=== PATIENT | female | born 1955 | race American Indian/Alaskan Native ===

== ENCOUNTER 2017-10-05 05:48 | Day surgery (SDC) | payer OTHER ==
[2017-10-05 07:29] LABS: Basophils % (Auto) 0.3 % (0.0-1.8); Eosinophils # (Auto) 0.1 K/mm3 (0.0-0.4); Eosinophils % (Auto) 0.5 % (0.0-4.3); Hematocrit 33.6 % (30.3-42.9); Hemoglobin 10.4 gm/dl (10.1-14.3); Lymphocytes # (Auto) 3.4 K/mm3 (1.2-5.4); Lymphocytes % (Auto) 34.6 % (13.4-35.0); Mean Corpuscular HGB Conc 31 % (30-34); Mean Corpuscular Volume 74 fl (79-97); Monocytes # (Auto) 1.1 K/mm3 (0.0-0.8); Monocytes % (Auto) 11.8 % (0.0-7.3); Platelet Count 118 K/mm3 (140-440); Red Blood Count 4.56 M/mm3 (3.65-5.03); Red Cell Distribution Width 17.2 % (13.2-15.2)
[2017-10-05 07:30] LABS: Mean Corpuscular Hemoglobin 23 pg (28-32)
[2017-10-05 07:40] LABS: INR 0.87 (0.87-1.13); Partial Thromboplastin Time 20.1 Sec. (24.2-36.6)
[2017-10-05] MEDS ORDERED: SUBLIMAZE ONE (08:40)
[2017-10-05] MEDS ORDERED: VERSED IV ONE ×2 (08:40→08:43)
[2017-10-05] MEDS ORDERED: SUBLIMAZE IV ONE (08:43)
[2017-10-05 10:49] VITALS: BP 113/62
--- NOTE | 2017-10-05 10:58 | Cat Scan Report ---
CT BIOPSY BONE MARROW: HISTORY: Thrombocytopenia. DESCRIPTION OF PROCEDURE: Informed consent was obtained. Sterile technique was utilized. Conscious sedation was accomplished with Versed and fentanyl. The patient was sedated for 15 minutes. Independent cardiorespiratory monitoring by RN. Intra-observer time of [address] guidance, an introducer needle was advanced into the right posterior iliac bone. 4 aspirations and one 11-gauge bone core was obtained. Pathology was present to handle the sample. The patient tolerated the procedure without difficulty. IMPRESSION: Successful CT-guided bone marrow biopsy.
[2017-10-05 11:35] LABS: Band Neutrophils # (Manual) 0.1 K/mm3; Basophils % (Manual) 0 % (0.0-1.8); Eosinophils % (Manual) 0 % (0.0-4.3); Total Cells Counted 100
[2017-10-05 11:39] LABS: Anisocytosis 1+
[2017-10-05 11:40] LABS: Acanthocytes 1+; Burr Cells Few; Macrocytosis 1+; Ovalocytes 1+; Platelet Estimate Appears Decreased; Schistocytes Few; Target Cells Few
== END 2017-10-05 11:10 | disposition home or self-care (01) ==
LOC: CATHLABREC 05:48 → EDSTATUS 07:30 → CATHLABREC 11:10
PROVIDERS: ATTEND Internal Medicine Hematology
DX: D69.6 Thrombocytopenia, unspecified (principal)
CPT/HCPCS: 36415; 38220; 38221; 85007; 85025; 85097; 85610; 85730; 88184; 88185; 88230; 88291; 88305; J2250; J3010; 88161; 88311; 88313

== ENCOUNTER 2018-01-28 09:11 | Outpatient (CLI) | payer OTHER ==
--- NOTE | 2018-01-28 14:17 | Ultrasound Report ---
ULTRASOUND ABDOMEN LIMITED History: Other primary thrombocytopenia. Findings: Targeted ultrasound was performed in the left upper quadrant to evaluate for an accessory spleen. 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 The images demonstrate no evidence for splenule or accessory spleen. Impression: No accessory spleen is identified in the left upper quadrant.
--- NOTE | 2018-01-29 08:55 | Ultrasound Report ---
FINAL REPORT EXAM: US PELVIC LIMITED HISTORY: ASSESS URINARY BLADDER FOR INCONTINENCE TECHNIQUE: Sagittal and transverse images were obtained of the bladder. FINDINGS: The bladder wall thickness is normal. There are no intraluminal abnormalities are stones. IMPRESSION: Normal-appearing bladder.
== END 2018-01-28 09:12 | disposition home or self-care (01) ==
LOC: US 09:11
PROVIDERS: ATTEND Internal Medicine Hematology
DX: D69.49 Other primary thrombocytopenia (principal); D69.3 Immune thrombocytopenic purpura; M19.90 Unspecified osteoarthritis, unspecified site; F41.9 Anxiety disorder, unspecified; Z82.49 Family history of ischemic heart disease and other diseases of the circulatory system; Z90.710 Acquired absence of both cervix and uterus
CPT/HCPCS: 76705; 76857

== ENCOUNTER 2022-04-09 07:02 | Outpatient (CLI) | payer MEDICARE ==
[2022-04-09 08:47] LABS: INR 0.89 (0.87-1.13); Partial Thromboplastin Time 22.7 Sec. (24.2-36.6)
[2022-04-09 09:05] LABS: Basophils % (Auto) 0.4 % (0.0-1.8); Eosinophils # (Auto) 0.1 K/mm3 (0.0-0.4); Eosinophils % (Auto) 1.2 % (0.0-4.3); Hematocrit 34.1 % (30.3-42.9); Hemoglobin 10.5 gm/dl (10.1-14.3); Lymphocytes % (Auto) 46.4 % (13.4-35.0); Mean Corpuscular HGB Conc 31 % (30-34); Mean Corpuscular Volume 73 fl (79-97); Mean Platelet Volume 10.1 fl (6-12); Monocytes % (Auto) 11.3 % (0.0-7.3); Platelet Count 220 K/mm3 (140-440); Red Blood Count 4.67 M/mm3 (3.65-5.03); Red Cell Distribution Width 15.9 % (13.2-15.2)
[2022-04-09] MEDS ORDERED: ONDANSETRON 4 MG/2 ML INJ IV ONE ×2 (12:00→16:00)
[2022-04-09] MEDS ORDERED: HYDROmorphone 1 MG/1 ML INJ IV ONE (12:00)
[2022-04-09] MEDS ORDERED: LIDOCAINE (1%) 10 MG/1 ML VIAL 20 ML MDV ONE (13:03)
--- NOTE | 2022-04-09 14:37 | Procedure Note ---
Date of procedure: 04/09/22 Pre-op diagnosis: ITP Post-op diagnosis: same Procedure: CT guided BM aspirate and biopsy Findings: See report in PACS Anesthesia: local Surgeon: EDGARD CAI Estimated blood loss: none Pathology: none Specimen disposition: to lab Condition: stable Disposition: other
--- NOTE | 2022-04-09 14:46 | Cat Scan Report ---
CT-guided bone marrow aspiration and biopsy INDICATION : Abnormal labs, ITP COMPARISON: None PROCEDURE: The risks (including but not limited to bleeding and infection) and benefits were explain ed to the patient and informed consent was obtained. All CT examinations performed at this facility utilize dose modulation, iterative reconstruction or weight-based dosing, when appropriate, to reduce radiation dose to as low as reasonably achievable. A time out procedure was performed. The procedu re site was prepped and draped in the usual sterile fashion and lidocaine was used for local anesthes ia. Under CT guidance, the right posterior iliac wing was selected for biopsy. An 11 gauge needle was ad vanced to the posterior margin of the iliac wing, cortex breached, and 10 mL bone marrow aspirate obt ained. The needle was then advanced and a bone marrow biopsy was obtained measuring approximately 2 cm. Samples were given directly to the exhibit technician who was present during the exam. The patient tolerated the procedure well with no complications. IMPRESSION: Technically successful bone marrow aspirate and biopsy. Signer Name: Beau Felix MD Signed: 04/09/2022 2:41 PM Workstation Name: [id number]
[2022-04-09 14:59] VITALS: BP 112/52
[2022-04-09] MEDS ORDERED: ONDANSETRON 4 MG/2 ML INJ ONE (15:55)
== END 2022-04-09 17:33 | disposition home or self-care (01) ==
LOC: CATHLABREC 07:02
PROVIDERS: ATTEND Internal Medicine Hematology
DX: D69.49 Other primary thrombocytopenia (principal); D69.3 Immune thrombocytopenic purpura; R94.8 Abnormal results of function studies of other organs and systems; H40.9 Unspecified glaucoma; F41.9 Anxiety disorder, unspecified; M19.90 Unspecified osteoarthritis, unspecified site; Z80.42 Family history of malignant neoplasm of prostate; Z80.1 Family history of malignant neoplasm of trachea, bronchus and lung; Z80.8 Family history of malignant neoplasm of other organs or systems; Z79.899 Other long term (current) drug therapy; Z98.890 Other specified postprocedural states; Z90.710 Acquired absence of both cervix and uterus; Z82.49 Family history of ischemic heart disease and other diseases of the circulatory system
CPT/HCPCS: 36415; 38222; 85025; 85610; 85730; 88305; J1170; J2405; 38221; 77012